=== PATIENT | male | born 1965 | race African-American/Black ===

== ENCOUNTER 2021-08-18 07:13 | Day surgery (SDC) | payer OTHER ==
[2021-08-15 17:47] VITALS: BMI 28.8
[~2021-08-18 07:13] MED LIST: BUPIVACAINE HCL/PF 0.25% (2.5MG/ML) 10 ML VIAL IJ ONE
[2021-08-18] MEDS ORDERED: BUPIVACAINE HCL/PF 2.5 MG/ML - 30 ML VIAL IJ ONE (07:28)
[2021-08-18] MEDS ORDERED: PROPOFOL 20 ML ONE (08:41)
[2021-08-18] MEDS ORDERED: MIDAZOLAM HCL 2 MG/2 ML SINGLE DOSE VIAL ONE (08:41)
[2021-08-18] MEDS ORDERED: ONDANSETRON 4 MG/2 ML VIAL ONE (09:13)
[2021-08-18] MEDS ORDERED: ceFAZolin SODIUM 1 GM VIAL ONE (09:13)
[2021-08-18] MEDS ORDERED: DEXAMETHASONE SOD PHOSPHATE 4 MG/1 ML VIAL ONE (09:13)
[2021-08-18] MEDS ORDERED: BUPIVACAINE HCL/PF 0.25% (2.5MG/ML) 10 ML VIAL IJ ONE (09:28)
[2021-08-18] MEDS ORDERED: KETOROLAC TROMETHAMINE 30 MG/1 ML VIAL ONE (09:31)
[2021-08-18] MEDS ORDERED: oxyCODONE HCL 5 MG TABLET PO PRN (09:40)
[2021-08-18] MEDS ORDERED: ONDANSETRON 4 MG/2 ML VIAL IVPUSH PRN (09:40)
[2021-08-18] MEDS ORDERED: LACTATED RINGERS SOLUTION 1,000 ML IV SCH (09:45)
[2021-08-18 10:40] VITALS: TEMP 98.1
[2021-08-18 11:20] VITALS: BP 110/65; PULSE 71
== END 2021-08-18 11:25 | disposition home or self-care (01) ==
LOC: FASU 07:13
PROVIDERS: ATTEND Orthopaedic Surgery
PROC: 0SBD4ZZ Excision of Left Knee Joint, Percutaneous Endoscopic Approach (ICD-10-PCS; 2021-08-18)
PROC: 0SBD4ZZ Excision of Left Knee Joint, Percutaneous Endoscopic Approach (ICD-10-PCS; principal; 2021-08-18 09:11)
DX: S83.242A Other tear of medial meniscus, current injury, left knee, initial encounter (principal); S83.8X2A Sprain of other specified parts of left knee, initial encounter; M65.862 Other synovitis and tenosynovitis, left lower leg; X58.XXXA Exposure to other specified factors, initial encounter; Y93.9 Activity, unspecified; Y92.9 Unspecified place or not applicable
CPT/HCPCS: 94760